=== PATIENT | female | born 1980 | race Caucasian/White ===

== ENCOUNTER 2017-01-31 14:22 | Emergency (ER) | payer OTHER ==
[2017-01-31 14:43] VITALS: BP 113/69; PULSE 77; TEMP 98.2; BMI 25.8
[2017-01-31] MEDS ORDERED: ALBUTEROL SO4 2.5/IPRATROPIUM 0.5 INH SOL 3 ML VIAL.NEB. NEB ONE ×5 (14:49→16:22)
[2017-01-31] MEDS ORDERED: predniSONE 20 MG TABLET (UD) PO ONE (15:12)
--- NOTE | 2017-01-31 15:21 | PDOC ---
History of Present Illness - General Chief Complaint: Respiratory Stated Complaint: COUGH Time Seen by Provider: 01/31/17 14:50 History Source: Patient Exam Limitations: No Limitations - History of Present Illness Initial Comments: 01/31/17 15:20 Patient well-known to this emergency department, history of but writes and able to read lips- came in today with congestion, moist productive cough of yellow phlegm and wheezing. Denies fevers, denies ear or throat pain, states is been ill for over 5 days. Did not call her physician. Denies drug use, has been using her albuterol nebulizer at home 01/31/17 22:49 Timing/Duration: reports: constant, getting worse (5 days) Severity: reports: mild, moderate Associated Symptoms: reports: denies symptoms, fever/chills Past History - Travel Traveled outside of the country in the last 30 days: No Close contact w/someone who was outside of country & ill: No - Past Medical History Allergies/Adverse Reactions: Allergies Allergy/AdvReac Type Severity Reaction Status Date / Time No Known Allergies Allergy Verified 01/31/17 14:37 Home Medications: Ambulatory Orders Fluoxetine HCl [Prozac] 20 mg PO DAILY #0 ml 08/07/12 Quetiapine Fumarate [Seroquel] 100 tab PO DAILY #30 tablet 08/05/16 Famotidine [Pepcid] 20 mg PO DAILY #14 tablet 08/10/16 Haloperidol [Haldol -] 5 mg PO DAILY #14 tablet 09/04/16 Albuterol Sulfate Inhaler - [Ventolin HFA Inhaler -] 1 puff IH QID #1 inhaler Azithromycin [Zithromax -] 250 mg PO UTDICT #4 tab 01/31/17 Prednisone [Deltasone -] 20 mg PO BID #8 tablet 01/31/17 Asthma: Yes Cancer: No Cardiac Disorders: No Diabetes: No HTN: No Psychiatric Problems: Yes (Tourettes) Seizures: No Thyroid Disease: No - Surgical History Cholecystectomy: Yes - Immunization History Immunization Up to Date: Yes - Psycho/Social/Smoking Cessation Hx Anxiety: No Suicidal Ideation: No Smoking Status: Yes Smoking History: Never smoked Have you smoked in the past 12 months: No Number of Cigarettes Smoked Daily: 0 Information on smoking cessation initiated: No Hx Alcohol Use: No Drug/Substance Use Hx: No Substance Use Type: None Hx Substance Use Treatment: No Respiratory Specific PMHX - Complaint Specific PMHX Bronchitis: Yes Review of Systems - Review of Systems Able to Perform ROS?: Yes Is the patient limited [place] proficient: Yes Constitutional: Yes: Symptoms Reported HEENTM: Yes: Symptoms Reported, Other (dentition in poor ) Respiratory: Yes: Symptoms reported, See HPI, Cough, Wheezing, Productive cough (yellow ) Integumentary: No: Symptoms Reported Neurological: No: Symptoms reported All Other Systems: Reviewed and Negative *Physical Exam - Vital Signs Last Vital Signs Temp Pulse Resp BP Pulse Ox 98.2 F 77 18 113/69 93 L 01/31/17 14:38 01/31/17 14:38 01/31/17 14:38 01/31/17 14:38 01/31/17 14:38 - Physical Exam General Appearance: Yes: Nourished, Appropriately Dressed, Apparent Distress, Mild Distress HEENT: positive: [place], Normal ENT Inspection, TMs Normal, Nasal Congestion, Rhinorrhea. negative: Pharynx Normal Neck: positive: Tender, Supple, Lymphadenopathy (R), Lymphadenopathy (L) Respiratory/Chest: positive: Crackles, Rhonchi, Wheezing. negative: Lungs Clear , Normal Breath Sounds Gastrointestinal/Abdominal: positive: Soft Extremity: positive: Normal Capillary Refill Integumentary: positive: Dry, Warm, Pale Neurologic: positive: foster winder II-XII NML intact, Fully Oriented, Alert, Normal Mood/ Affect, Normal Response, Motor Strength 5/5 ED Treatment Course - Medications Given in the ED: ED Medications Discontinued Medications Generic Name Dose Route Start Last Admin Trade Name Shantanu PRN Reason Stop Dose Admin Albuterol/Ipratropium 1 amp 01/31/17 14:49 01/31/17 14:53 Duoneb - NEB 01/31/17 14:50 1 amp NOW ONE Administration Progress Note - Progress Note Progress Note: Asthma exacerbation with upper respiratory infection. We'll treat with duo nebs and prednisone Medical Decision Making - Medical Decision Making 01/31/17 16:19 Zhong and less wheezing. Patient states feels improved, will continue with duo nebs as pulse ox remains 90% and start Zithromax 01/31/17 17:45 Patient much improved after 4 duo nebs, and prednisone. Wheezing much resolved and patient states feels better. Started on Zithromax and will give prescription for continued prednisone and albuterol pump's. Patient will follow- up with PMD 01/31/17 22:50 *DC/Admit/Observation/Transfer Diagnosis at time of Disposition: Asthma exacerbation, Bronchitis - Discharge Dispostion Disposition: HOME Condition at time of disposition: Stable Admit: No - Prescriptions Prescriptions: Prednisone [Deltasone -] 20 mg PO BID #8 tablet Albuterol Sulfate Inhaler - [Ventolin HFA Inhaler -] 1 puff IH QID #1 inhaler Azithromycin [Zithromax -] 250 mg PO UTDICT #4 tab - Referrals Referrals: Winter Tripathi MD [Primary Care Provider] - - Patient Instructions Printed Discharge Instructions: DI for Acute Bronchitis Additional Instructions: Rest, drink lots of fluids: Teas, water, soups, Pedialyte Saltwater gargles Steamy showers/seem to face break up mucus Avoid contact with others until fevers and cough resolved Lots of handwashing and good hygiene Continue [id number] medications for symptomatic relief Tylenol or Motrin for fever and pain Continue prednisone 40 mg daily for the next 4 days 2 puffs albuterol every 6 hours for the next 3 days then as needed Zithromax 1 tablet every day for the next 4 days- you had first day's dose of 500 mg today in the emergency department Followup with private physician in one to 2 days as needed Return to emergency department for worsened symptoms, fevers, dehydration - Post Discharge Activity Work/School Note: Back to Work
[2017-01-31] MEDS ORDERED: predniSONE 20 MG TABLET (UD) ONE (15:34)
[2017-01-31] MEDS ORDERED: AZITHROMYCIN 250 MG TABLET (FP) PO ONE (16:17)
[2017-01-31] MEDS ORDERED: AZITHROMYCIN 250 MG TABLET (FP) ONE (16:22)
== END 2017-01-31 17:55 | disposition home or self-care (01) ==
LOC: JERFT 14:22
PROC: 3E0F7GC Introduction of Other Therapeutic Substance into Respiratory Tract, Via Natural or Artificial Opening (ICD-10-PCS; principal; 2017-01-31)
DX: J45.901 Unspecified asthma with (acute) exacerbation (principal); J20.9 Acute bronchitis, unspecified; F95.2 Tourette's disorder
CPT/HCPCS: 94640; 99281-25

== ENCOUNTER 2017-09-09 19:10 | Emergency (ER) | payer OTHER ==
[2017-09-09 19:25] VITALS: BP 108/72; PULSE 71; TEMP 98.2; BMI 25.0
--- NOTE | 2017-09-09 19:26 | PDOC ---
Rapid Medical Evaluation Time Seen by Provider: 09/09/17 19:20 Medical Evaluation: Allergies Allergy/AdvReac Type Severity Reaction Status Date / Time No Known Allergies Allergy Verified 01/31/17 14:37 09/09/17 19:21 I have performed a brief in-person evaluation of this patient. The patient presents with a chief complaint of: cough and wheeze Pertinent physical exam findings: exp rhonchi and wheeze I have ordered the following: cxr The patient will proceed to the ED for further evaluation.
[2017-09-09] MEDS ORDERED: predniSONE 20 MG TABLET (UD) PO ONE (21:04)
[2017-09-09] MEDS ORDERED: ALBUTEROL SO4 2.5/IPRATROPIUM 0.5 INH SOL 3 ML VIAL.NEB. NEB STA (21:04)
[2017-09-09] MEDS ORDERED: predniSONE 20 MG TABLET (UD) ONE (21:06)
--- NOTE | 2017-09-09 21:10 | PDOC ---
History of Present Illness - General Chief Complaint: Cold Symptoms Stated Complaint: WHEEZING Time Seen by Provider: 09/09/17 19:20 History Source: Patient Exam Limitations: No Limitations - History of Present Illness Initial Comments: 09/09/17 21:07 37 yr female with c/o cough and wheezing for 3 days history of asthma . Pt states she ran out of her medications. no vomiting no fever. Severity: reports: moderate Past History - Past Medical History Allergies/Adverse Reactions: Allergies Allergy/AdvReac Type Severity Reaction Status Date / Time No Known Allergies Allergy Verified 01/31/17 14:37 Home Medications: Ambulatory Orders Fluoxetine HCl [Prozac] 20 mg PO DAILY #0 ml 08/07/12 Quetiapine Fumarate [Seroquel] 100 tab PO DAILY #30 tablet 08/05/16 Famotidine [Pepcid] 20 mg PO DAILY #14 tablet 08/10/16 Azithromycin [Zithromax -] 250 mg PO UTDICT #4 tab 01/31/17 Prednisone [Deltasone -] 20 mg PO BID #8 tablet 01/31/17 Albuterol 0.083% Nebulizer Jannie [Ventolin 0.083% Nebulizer Soln -] 1 neb NEB Q4H #30 vial 09/09/17 Albuterol Sulfate Inhaler - [Ventolin HFA Inhaler -] 2 inh PO Q4H #1 inh Prednisone [Deltasone -] 20 mg PO BID #8 tablet 09/09/17 Asthma: Yes Cancer: No Cardiac Disorders: No COPD: No Diabetes: No HTN: No Psychiatric Problems: Yes (Tourettes) Seizures: No Thyroid Disease: No - Surgical History Cholecystectomy: Yes - Immunization History Immunization Up to Date: Yes - Suicide/Smoking/Psychosocial Hx Smoking Status: Yes Smoking History: Never smoked Have you smoked in the past 12 months: No Number of Cigarettes Smoked Daily: 0 Information on smoking cessation initiated: No Hx Alcohol Use: No Drug/Substance Use Hx: No Substance Use Type: None Hx Substance Use Treatment: No Respiratory Specific PMHX - Complaint Specific PMHX Bronchitis: Yes Review of Systems - Review of Systems Able to Perform ROS?: Yes Is the patient limited [place] proficient: No Constitutional: No: Symptoms Reported HEENTM: No: Symptoms Reported Respiratory: Yes: Cough, Wheezing Cardiac (ROS): No: Symptoms Reported ABD/GI: No: Symptoms Reported : No: Symptoms Reported Musculoskeletal: No: Symptoms Reported *Physical Exam - Vital Signs Last Vital Signs Temp Pulse Resp BP Pulse Ox 98.2 F 71 19 108/72 99 09/09/17 19:23 09/09/17 19:23 09/09/17 19:23 09/09/17 19:23 09/09/17 19:23 *DC/Admit/Observation/Transfer Diagnosis at time of Disposition: Asthma attack Qualifiers: Asthma severity: mild Asthma persistence: intermittent Qualified Code(s): J45.21 - Mild intermittent asthma with (acute) exacerbation - Discharge Dispostion Disposition: HOME Condition at time of disposition: Good - Prescriptions Prescriptions: Albuterol 0.083% Nebulizer Jannie [Ventolin 0.083% Nebulizer Soln -] 1 neb NEB Q4H #30 vial Albuterol Sulfate Inhaler - [Ventolin HFA Inhaler -] 2 inh PO Q4H #1 inh Prednisone [Deltasone -] 20 mg PO BID #8 tablet - Referrals Referrals: STAFF,NOT ON [Primary Care Provider] - Jame Johnston MD [Staff Physician] - - Patient Instructions Additional Instructions: drink pleanty of fluids to stay hydrated follow with your road consultant or for follow up take the medications as prescribed Return to ER for any worsening symtpoms - Post Discharge Activity
== END 2017-09-09 22:21 | disposition home or self-care (01) ==
LOC: JERFT 19:10
PROC: 3E0F7GC Introduction of Other Therapeutic Substance into Respiratory Tract, Via Natural or Artificial Opening (ICD-10-PCS; principal; 2017-09-09)
DX: J45.21 Mild intermittent asthma with (acute) exacerbation (principal)
CPT/HCPCS: 71020-TC; 94640; 99281-25

== ENCOUNTER 2017-10-29 16:40 | Emergency (ER) | payer OTHER ==
[2017-10-29 17:20] VITALS: BMI 25.0
--- NOTE | 2017-10-29 17:23 | PDOC ---
Rapid Medical Evaluation Time Seen by Provider: 10/29/17 17:16 Medical Evaluation: Allergies Allergy/AdvReac Type Severity Reaction Status Date / Time No Known Allergies Allergy Verified 01/31/17 14:37 I have performed a brief in-person evaluation of this patient. The patient presents with a chief complaint of: copd. dry cough, dizziness, HAs x 4 days Pertinent physical exam findings: persistent dry cough, diffuse expiratory wheezing across all martinez. I have ordered the following: duoneb x 3, CXR, labs The patient will proceed to the ED for further evaluation.
[2017-10-29] MEDS: ALBUTEROL SO4 2.5/IPRATROPIUM 0.5 INH SOL 3 ML VIAL.NEB. NEB SCH ×4 (17:34→23:47)
[2017-10-29 17:55] LABS: BASO % 0.6 % (0-2.0); EOS % 1.2 % (0-4.5); HEMATOCRIT 37.7 % (32.4-45.2); HEMOGLOBIN 12.3 GM/dL (10.7-15.3); LYMPH % 28.6 % (8-40); MCHC 32.5 g/dl (32.0-36.0); MEAN CELL VOLUME 86.2 fl (80-96); MEAN PLT VOLUME 10.4 fl (7.5-11.1); MONO % 8.2 % (3.8-10.2); NEUT % 61.4 % (42.8-82.8); PLATELET COUNT 190 K/MM3 (134-434); RBC 4.38 M/mm3 (3.60-5.2); RDW 13.2 % (11.6-15.6)
[2017-10-29 18:47] LABS: ALK PHOS 144 U/L (45-117); ANION GAP 12 (8-16); BILIRUBIN,TOTAL 0.3 mg/dL (0.2-1.0); BLOOD UREA NITROGEN 6 mg/dL (7-18); CALCIUM 8.8 mg/dL (8.5-10.1); CHLORIDE 103 mmol/L (98-107); CO2 25 mmol/L (21-32); CREATININE 0.7 mg/dL (0.55-1.02); GLUCOSE,RANDOM 108 mg/dL (74-106); POTASSIUM 3.7 mmol/L (3.5-5.1); SGOT/AST 9 U/L (15-37); SGPT/ALT 10 U/L (12-78); SODIUM 140 mmol/L (136-145); TOT PROT 7.5 g/dl (6.4-8.2)
[2017-10-29] MEDS ORDERED: ACETAMINOPHEN 325 MG TABLET (FP) PO ONE (20:14)
--- NOTE | 2017-10-29 22:01 | PDOC ---
History of Present Illness - General Chief Complaint: Respiratory Stated Complaint: DIFF BREATHING Time Seen by Provider: 10/29/17 17:16 History Source: Patient - History of Present Illness Initial Comments: 10/29/17 22:09 37-year-old female with history of COPD well-known to the ER patient is deaf but can read lips and uses sign language and right on paper to communicate. Complains of fever, dizziness, headache, cough and chest congestion for 4 days. Denies chest pain, nausea, vomiting, diarrhea, abdominal pain, urinary symptoms. Denies smoking, illicit drug use. PMD is Dr. Coyne Past History - Past Medical History Allergies/Adverse Reactions: Allergies Allergy/AdvReac Type Severity Reaction Status Date / Time No Known Allergies Allergy Verified 10/29/17 17:20 Home Medications: Ambulatory Orders Fluoxetine HCl [Prozac] 20 mg PO DAILY #0 ml 08/07/12 Quetiapine Fumarate [Seroquel] 100 tab PO DAILY #30 tablet 08/05/16 Famotidine [Pepcid] 20 mg PO DAILY #14 tablet 08/10/16 Prednisone [Deltasone -] 20 mg PO BID #8 tablet 01/31/17 Albuterol 0.083% Nebulizer Jannie [Ventolin 0.083% Nebulizer Soln -] 1 neb NEB Q4H #30 vial 09/09/17 Prednisone [Deltasone -] 20 mg PO BID #8 tablet 09/09/17 Albuterol Sulfate Inhaler - [Ventolin HFA Inhaler -] 2 inh PO Q4H #1 inh Azithromycin [Zithromax 250mg Tablets -] 250 mg PO UTDICT #4 tab 10/30/17 Prednisone [Prednisone 50 MG TABLETS] 50 mg PO DAILY #5 tablet 10/30/17 Asthma: Yes Cancer: No Cardiac Disorders: No COPD: Yes Diabetes: No HTN: No Psychiatric Problems: Yes (Tourettes) Seizures: No Thyroid Disease: No - Surgical History Cholecystectomy: Yes - Immunization History Immunization Up to Date: Yes - Suicide/Smoking/Psychosocial Hx Smoking Status: Yes Smoking History: Current every day smoker Have you smoked in the past 12 months: No Number of Cigarettes Smoked Daily: 5 Information on smoking cessation initiated: No Hx Alcohol Use: No Drug/Substance Use Hx: No Substance Use Type: None Hx Substance Use Treatment: No Respiratory Specific PMHX - Complaint Specific PMHX Bronchitis: Yes Review of Systems - Review of Systems Able to Perform ROS?: Yes Is the patient limited [place] proficient: No Constitutional: Yes: Fever Respiratory: Yes: Cough, Wheezing Neurological: Yes: Headache, Dizziness *Physical Exam - Vital Signs Last Vital Signs Temp Pulse Resp BP Pulse Ox 99.3 F 86 20 123/69 96 10/29/17 17:16 10/29/17 17:16 10/29/17 17:16 10/29/17 17:16 10/29/17 17:16 - Physical Exam General Appearance: Yes: Appropriately Dressed HEENT: positive: Normal ENT Inspection Respiratory/Chest: positive: Rhonchi, Wheezing Cardiovascular: positive: Regular Rhythm, Regular Rate Gastrointestinal/Abdominal: positive: Normal Bowel Sounds, Soft Extremity: positive: Normal Capillary Refill, Normal Inspection, Normal Range of Motion Integumentary: positive: Normal Color, Dry, Warm Neurologic: positive: Fully Oriented, Alert, Normal Mood/Affect ED Treatment Course - LABORATORY CBC & Chemistry Diagram: 10/29/17 17:40 10/29/17 17:40 - ADDITIONAL ORDERS Additional order review: Laboratory Results 10/29/17 10/29/17 17:40 17:40 Sodium 140 Potassium 3.7 Chloride 103 Carbon Dioxide 25 Anion Gap 12 BUN 6 L D Creatinine 0.7 D Creat Clearance w eGFR > 60 Random Glucose 108 H D Calcium 8.8 Total Bilirubin 0.3 D AST 9 L D ALT 10 L D Alkaline Phosphatase 144 H Total Protein 7.5 Albumin 4.0 Serum , Qual Negative 10/29/17 17:40 RBC 4.38 D MCV 86.2 MCHC 32.5 RDW 13.2 MPV 10.4 D Neutrophils % 61.4 Lymphocytes % 28.6 Monocytes % 8.2 Eosinophils % 1.2 Basophils % 0.6 - Medications Given in the ED: ED Medications Discontinued Medications Generic Name Dose Route Start Last Admin Trade Name Freq PRN Reason Stop Dose Admin Acetaminophen 650 mg 10/29/17 20:14 10/29/17 20:26 Tylenol - PO 10/29/17 20:15 650 mg ONCE ONE Administration Albuterol/Ipratropium 1 amp 10/29/17 17:30 10/29/17 18:12 Duoneb - NEB 10/29/17 18:16 1 amp Q15M ARLEN Administration Progress Note - Progress Note Progress Note: A: bronchitis P: duoneb prednisone ibuprofen *DC/Admit/Observation/Transfer Diagnosis at time of Disposition: Bronchitis Asthma exacerbation Qualifiers: Asthma severity: mild Asthma persistence: intermittent Qualified Code(s): J45.21 - Mild intermittent asthma with (acute) exacerbation - Discharge Dispostion Disposition: HOME - Prescriptions Prescriptions: Albuterol Sulfate Inhaler - [Ventolin HFA Inhaler -] 2 inh PO Q4H #1 inh Azithromycin [Zithromax 250mg Tablets -] 250 mg PO UTDICT #4 tab Prednisone [Prednisone 50 MG TABLETS] 50 mg PO DAILY #5 tablet - Referrals Referrals: STAFF,NOT ON [Primary Care Provider] - - Patient Instructions Printed Discharge Instructions: Asthma -- Adult, DI for Acute Bronchitis Additional Instructions: take albuterol inhaler every6 hours as needed for cough., take prednisone once daily follow up with your doctor as soon as possible. return to the ED if symptoms worsen - Post Discharge Activity
[2017-10-29] MEDS ORDERED: predniSONE 20 MG TABLET (UD) PO ONE (22:07)
[2017-10-29] MEDS ORDERED: IBUPROFEN 600 MG TABLET (FP) PO ONE ×2 (22:07→23:09)
[2017-10-29] MEDS ORDERED: predniSONE 20 MG TABLET (UD) ONE (23:09)
[2017-10-29] MEDS ORDERED: ALBUTEROL SO4 2.5/IPRATROPIUM 0.5 INH SOL 3 ML VIAL.NEB. NEB ONE (23:10)
--- NOTE | 2017-10-29 23:47 | PDOC ---
*Physical Exam - Vital Signs Last Vital Signs Temp Pulse Resp BP Pulse Ox 99.3 F 86 20 123/69 96 10/29/17 17:16 10/29/17 17:16 10/29/17 17:16 10/29/17 17:16 10/29/17 17:16 ED Treatment Course - LABORATORY CBC & Chemistry Diagram: 10/29/17 17:40 10/29/17 17:40 - ADDITIONAL ORDERS Additional order review: Laboratory Results 10/29/17 10/29/17 17:40 17:40 Sodium 140 Potassium 3.7 Chloride 103 Carbon Dioxide 25 Anion Gap 12 BUN 6 L D Creatinine 0.7 D Creat Clearance w eGFR > 60 Random Glucose 108 H D Calcium 8.8 Total Bilirubin 0.3 D AST 9 L D ALT 10 L D Alkaline Phosphatase 144 H Total Protein 7.5 Albumin 4.0 Serum , Qual Negative 10/29/17 17:40 RBC 4.38 D MCV 86.2 MCHC 32.5 RDW 13.2 MPV 10.4 D Neutrophils % 61.4 Lymphocytes % 28.6 Monocytes % 8.2 Eosinophils % 1.2 Basophils % 0.6 - Medications Given in the ED: ED Medications Discontinued Medications Generic Name Dose Route Start Last Admin Trade Name Freq PRN Reason Stop Dose Admin Acetaminophen 650 mg 10/29/17 20:14 10/29/17 20:26 Tylenol - PO 10/29/17 20:15 650 mg ONCE ONE Administration Albuterol/Ipratropium 1 amp 10/29/17 17:30 10/29/17 18:12 Duoneb - NEB 10/29/17 18:16 1 amp Q15M ARLEN Administration Albuterol/Ipratropium 1 amp 10/29/17 22:15 10/29/17 23:19 Duoneb - NEB 10/29/17 23:01 1 amp Q15M ARLEN Administration Ibuprofen 600 mg 10/29/17 22:07 10/29/17 23:18 Motrin - PO 10/29/17 22:08 600 mg ONCE ONE Administration Prednisone 60 mg 10/29/17 22:07 10/29/17 23:18 Deltasone - PO 10/29/17 22:08 60 mg ONCE ONE Administration Medical Decision Making - Medical Decision Making 10/29/17 23:47 agree with care from RONNIE Cotton *DC/Admit/Observation/Transfer Diagnosis at time of Disposition: Asthma exacerbation, Bronchitis - Discharge Dispostion Disposition: HOME Condition at time of disposition: Stable - Prescriptions Prescriptions: Albuterol Sulfate Inhaler - [Ventolin HFA Inhaler -] 2 inh PO Q4H #1 inh Azithromycin [Zithromax 250mg Tablets -] 250 mg PO UTDICT #4 tab Prednisone [Prednisone 50 MG TABLETS] 50 mg PO DAILY #5 tablet - Referrals Referrals: STAFF,NOT ON [Primary Care Provider] - - Patient Instructions Printed Discharge Instructions: Asthma -- Adult, DI for Acute Bronchitis Additional Instructions: take albuterol inhaler every6 hours as needed for cough., take prednisone once daily follow up with your doctor as soon as possible. return to the ED if symptoms worsen - Post Discharge Activity
[2017-10-30] MEDS: ALBUTEROL SO4 2.5/IPRATROPIUM 0.5 INH SOL 3 ML VIAL.NEB. NEB SCH ×2 (00:41→00:49)
[2017-10-30 00:48] VITALS: BP 118/68; PULSE 76; TEMP 97.7
[2017-10-30] MEDS ORDERED: ALBUTEROL SO4 0.083% IH SOL 2.5 MG/3 ML VIAL.NEB. NEB ONE ×2 (02:14→02:21)
== END 2017-10-30 03:07 | disposition home or self-care (01) ==
LOC: JER 16:40
DX: Z53.21 Procedure and treatment not carried out due to patient leaving prior to being seen by health care provider (principal)
CPT/HCPCS: 36415; 71046-TC; 80053; 84703; 85025; 99282-25

== ENCOUNTER 2017-10-30 04:56 | Emergency (ER) | payer OTHER | END 2017-10-30 05:28 | disposition left against medical advice (07) | LOC: JER 04:56 | DX: Z53.21 Procedure and treatment not carried out due to patient leaving prior to being seen by health care provider (principal) | CPT/HCPCS: 99281-25 ==